=== PATIENT | female | born 1995 | race Hispanic/Latino ===

== ENCOUNTER 2018-07-20 19:06 | Emergency (ER) | payer OTHER ==
[2018-07-20 21:09] LABS: Hematocrit 33.4 % (36.0-45.0); RBC Red Blood Cell Count 3.89 M/uL (3.86-4.86)
[2018-07-20 21:10] LABS: Absolute Lymphocytes (CBC) 1.3 K/uL (0.7-4.9); Absolute Monocytes 0.6 K/uL (0.1-1.3); Absolute Neutrophil 6.8 K/uL (1.8-8.0); Basophils % 0.2 % (0-1.3); Eosinophils % 2.6 % (0-4.4); MPV 10.3 fL (7.6-11.3); Monocytes % 6.5 % (3.3-12.3)
[2018-07-20 21:19] LABS: Urine Blood TRACE (NEG); Urine Glucose NEGATIVE (NEG); Urine Protein TRACE (NEG); Urine Specific Gravity >1.030 (1.005-1.030); Urine pH 5.5 (5.0-7.0)
[2018-07-20 21:24] LABS: ALT/SGPT 20 U/L (12-78); AST/SGOT 16 U/L (15-37); Albumin 3.5 g/dL (3.4-5.0); Alkaline Phosphatase 128 U/L (45-117); BUN Blood Urea Nitrogen 9 mg/dL (7-18); Bicarbonate 23 mmol/L (21-32); Bilirubin Direct < 0.1 mg/dL (0-0.2); Bilirubin Total 0.3 mg/dL (0.2-1.0); Glucose Level 106 mg/dL (74-106); Lipase 113 U/L (73-393); Potassium 3.5 mmol/L (3.5-5.1); Protein, Total 7.4 g/dL (6.4-8.2); Sodium Level 141 mmol/L (136-145)
[2018-07-20] MEDS ORDERED: NA CHLORIDE 0.9% 1,000 ML ONE (21:38)
[2018-07-20] MEDS ORDERED: ONDANSETRON 4 MG/2 ML VIAL ONE (21:38)
[2018-07-20] MEDS ORDERED: KETOROLAC 30 MG/ML INJ ONE (21:38)
[2018-07-20] MEDS ORDERED: PROMETHAZINE 25 MG/ML VIAL ONE (21:44)
--- NOTE | 2018-07-20 21:44 | ER ---
Nurse's Notes [facility] Name: Aicha Bee Age: 23 yrs Sex: Female : 1995 Arrival Date: 07/20/2018 Time: 19:18 Bed 11 Private MD: Diagnosis: Unspecified abdominal pain Presentation: 07/20 19:19 Presenting complaint: Patient states: I have been having lower abd pain for three days la1 with chills. Pt denies vomiting or diarrhea. Transition of care: patient was not received from another setting of care. Onset of symptoms was July 20, 2018. Risk Assessment: Do you want to hurt yourself or someone else? Patient reports no desire to harm self or others. Initial Sepsis Screen: Does the patient meet any 2 criteria? No. Patient's initial sepsis screen is negative. Does the patient have a suspected source of infection? No. Patient's initial sepsis screen is negative. Care prior to arrival: None. 19:19 Method Of Arrival: Ambulatory la1 19:19 Acuity: HIRO 3 la1 Triage Assessment: 20:48 General: Behavior is calm, cooperative. 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 - Social history:: Smoking status: Patient/guardian denies using tobacco. - Ebola Screening: : No symptoms or risks identified at this time. Screenin:44 Abuse screen: Denies threats or abuse. Denies injuries from another. Nutritional mg2 screening: No deficits noted. Tuberculosis screening: No symptoms or risk factors identified. Fall Risk IV access (20 points). Assessment: 20:45 General: Appears in no apparent distress. comfortable. Pain: Complains of pain in mg2 abdomen Pain does not radiate. Pain currently is 3 out of 10 on a pain scale. Quality of pain is described as aching, Pain began gradually, 2-3 days ago. Is intermittent. Neuro: Level of Consciousness is awake, alert, obeys commands, Oriented to person, place, time, situation. Cardiovascular: Capillary refill < 3 seconds Patient's skin is warm and dry. Cardiovascular: Reports chest pain. Respiratory: Airway is patent Respiratory effort is even, unlabored, Respiratory pattern is regular, symmetrical. GI: Bowel sounds present X 4 quads. Abd is soft and non tender. : Urine is clear. EENT: No signs and/or symptoms were reported regarding the EENT system. Derm: Skin is intact, is healthy with good turgor, Skin is pink, warm \T\ dry. normal. Musculoskeletal: No signs and/or symptoms reported regarding the musculoskeletal system. 22:22 Reassessment: Patient is alert, oriented x 3, equal unlabored respirations, skin bb warm/dry/pink. pt verbalized understanding of and agrees to plan of care discharge instructions given pt ambulated with steady gait to exit accompanied by family. Vital Signs: 19:20 BP 107 / 86; Pulse 107; Resp 16; Temp 99.3(TE); Pulse Ox 100% on R/A; la1 20:45 BP 110 / 70; Pulse 98; Resp 18; Temp 98.7; Pulse Ox 100% on R/A; Pain 2/10; mg2 22:23 BP 97 / 59; Pulse 85; Resp 16 S; Temp 96.8(O); Pulse Ox 100% on R/A; Pain 8/10; bb ED Course: 19:18 Patient arrived in ED. la1 19:19 Triage completed. la1 19:20 Arm band placed on right wrist. la1 19:52 Randi Mandujano FNP-C is [facility]. kb 19:52 Sriram Lugo MD is Attending Physician. kb 19:54 Stepan Christianson, REED is Primary Nurse. mg2 20:45 No provider procedures requiring assistance completed. Inserted saline lock: 20 gauge mg2 in right antecubital area, using aseptic technique. Blood collected. 20:47 Patient has correct armband on for positive identification. Pulse ox on. NIBP on. Door mg2 closed. 22:23 IV discontinued, intact, bleeding controlled, No redness/swelling at site. Pressure bb dressing applied. Administered Medications: 21:35 Drug: NS 0.9% 1000 ml Route: IV; Rate: 1000 ml; Site: right antecubital; la1 21:55 Follow up: IV Status: Completed infusion la1 21:35 Not Given (Other Intervention Used): Zofran 4 mg IVP once; over 2 minutes la1 21:35 Drug: TORadol 30 mg Route: IVP; Site: right antecubital; la1 21:55 Follow up: Response: No adverse reaction la1 21:55 Drug: Phenergan 12.5 mg Route: IVP; Site: right antecubital; la1 21:55 Follow up: Response: No adverse reaction la1 Outcome: 21:43 Discharge ordered by . kb 22:24 Discharged to home ambulatory, with family. bb 22:24 Condition: stable 22:24 Discharge instructions given to patient, Instructed on discharge instructions, follow up and referral plans. medication usage, Demonstrated understanding of instructions, follow-up care, medications, Prescriptions given X 1. 22:25 Patient left the ED. bb Signatures: Randi Mandujano, RODNEY-C RODNEY-Venecia Roman RN RN bb Denny Campbell RN RN la1 Stepan Christianson RN RN mg2
--- NOTE | 2018-07-20 21:44 | EDPHYS ---
Physician Documentation [facility] Name: Aicha Bee Age: 23 yrs Sex: Female : 1995 Arrival Date: 07/20/2018 Time: 19:18 Bed 11 Private MD: ED Physician Sriram Lugo HPI: 07/20 20:53 This 23 yrs old Female presents to ER via Ambulatory with complaints of kb Abdominal Pain. 20:53 The patient presents with abdominal pain in the left upper quadrant, in the left lower kb quadrant. Onset: The symptoms/episode began/occurred 4 day(s) ago. The symptoms do not radiate. Associated signs and symptoms: Pertinent positives: nausea. The symptoms are described as constant. Modifying factors: The symptoms are alleviated by nothing, the symptoms are aggravated by nothing. Severity of pain: At its worst the pain was moderate in the emergency department the pain is unchanged. The patient has not experienced similar symptoms in the past. The patient has not recently seen a physician. 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 - Social history:: Smoking status: Patient/guardian denies using tobacco. - Ebola Screening: : No symptoms or risks identified at this time. ROS: 20:51 ENT: Negative for injury, pain, and discharge, Neck: Negative for injury, pain, and kb swelling, Cardiovascular: Negative for chest pain, palpitations, and edema, Respiratory: Negative for shortness of breath, cough, wheezing, and pleuritic chest pain, Back: Negative for injury and pain, : Negative for injury, bleeding, discharge, and swelling, MS/Extremity: Negative for injury and deformity, Skin: Negative for injury, rash, and discoloration, Neuro: Negative for headache, weakness, numbness, tingling, and seizure. 20:51 Constitutional: Positive for body aches, chills, Negative for fatigue, fever, malaise, poor PO intake, weight loss. 20:51 Abdomen/GI: Positive for abdominal pain, nausea, Negative for vomiting, diarrhea, constipation, abdominal cramps, abdominal distension, anorexia. Exam: 20:52 Constitutional: This is a well developed, well nourished patient who is awake, alert, kb and in no acute distress. Head/Face: Normocephalic, atraumatic. ENT: Nares patent. No nasal discharge, no septal abnormalities noted. Tympanic membranes are normal and external auditory canals are clear. Oropharynx with no redness, swelling, or masses, exudates, or evidence of obstruction, uvula midline. Mucous membranes moist. Neck: Trachea midline, no thyromegaly or masses palpated, and no cervical lymphadenopathy. Supple, full range of motion without nuchal rigidity, or vertebral point tenderness. No Meningismus. Chest/axilla: Normal chest wall appearance and motion. Nontender with no deformity. No lesions are appreciated. Cardiovascular: Regular rate and rhythm with a normal S1 and S2. No gallops, murmurs, or rubs. Normal PMI, no JVD. No pulse deficits. Respiratory: Lungs have equal breath sounds bilaterally, clear to auscultation and percussion. No rales, rhonchi or wheezes noted. No increased work of breathing, no retractions or nasal flaring. Back: No spinal tenderness. No costovertebral tenderness. Full range of motion. Skin: Warm, dry with normal turgor. Normal color with no rashes, no lesions, and no evidence of cellulitis. MS/ Extremity: Pulses equal, no cyanosis. Neurovascular intact. Full, normal range of motion. Neuro: Awake and alert, GCS 15, oriented to person, place, time, and situation. Cranial nerves II-XII grossly intact. Motor strength 5/5 in all extremities. Sensory grossly intact. Cerebellar exam normal. Normal gait. 20:52 Abdomen/GI: Inspection: abdomen appears normal, Bowel sounds: normal, in all quadrants, Palpation: soft, in all quadrants, nontender, in the right upper quadrant and right lower quadrant, moderate abdominal tenderness, in the left upper quadrant and left lower quadrant. Vital Signs: 19:20 BP 107 / 86; Pulse 107; Resp 16; Temp 99.3(TE); Pulse Ox 100% on R/A; la1 20:45 BP 110 / 70; Pulse 98; Resp 18; Temp 98.7; Pulse Ox 100% on R/A; Pain 2/10; mg2 22:23 BP 97 / 59; Pulse 85; Resp 16 S; Temp 96.8(O); Pulse Ox 100% on R/A; Pain 8/10; bb MDM: 19:52 Patient medically screened. 20:52 Data reviewed: vital signs, nurses notes. Data interpreted: Pulse oximetry: on room air kb is 100 %. Interpretation: normal. 21:41 Counseling: I had a detailed discussion with the patient and/or guardian regarding: the kb historical points, exam findings, and any diagnostic results supporting the discharge/admit diagnosis, lab results, the need for outpatient follow up, a family practitioner, to return to the emergency department if symptoms worsen or persist or if there are any questions or concerns that arise at home. 07/20 20:20 Order name: Basic Metabolic Panel 07/20 20:20 Order name: CBC with Diff 07/20 20:20 Order name: Hepatic Function 07/20 20:20 Order name: Lipase 07/20 20:20 Order name: [place] Screen Profile 07/20 20:29 Order name: Urine Dipstick--Ancillary (enter results) 4 07/20 20:29 Order name: Urine --Ancillary (enter results) 4 07/20 21:19 Order name: CBC with Automated Diff; Complete Time: 21:19 EDMS 07/20 21:19 Order name: Urine --Ancillary; Complete Time: 21:22 EDMS 07/20 21:19 Order name: Urine Dipstick-Ancillary; Complete Time: 21:22 EDMS 07/20 21:24 Order name: [place] Screen; Complete Time: 21:25 EDMS 07/20 21:24 Order name: Basic Metabolic Panel; Complete Time: 21:25 EDMS 07/20 21:24 Order name: Liver (Hepatic) Function; Complete Time: 21:25 EDMS 07/20 21:24 Order name: Lipase; Complete Time: 21:25 EDMS 07/20 19:53 Order name: Urine Dipstick-Ancillary (obtain specimen); Complete Time: 20:29 kb 07/20 20:20 Order name: IV Saline Lock; Complete Time: 20:44 kb 07/20 20:20 Order name: Labs collected and sent; Complete Time: 20:44 kb Administered Medications: 21:35 Drug: NS 0.9% 1000 ml Route: IV; Rate: 1000 ml; Site: right antecubital; la1 21:55 Follow up: IV Status: Completed infusion la1 21:35 Not Given (Other Intervention Used): Zofran 4 mg IVP once; over 2 minutes la1 21:35 Drug: TORadol 30 mg Route: IVP; Site: right antecubital; la1 21:55 Follow up: Response: No adverse reaction la1 21:55 Drug: Phenergan 12.5 mg Route: IVP; Site: right antecubital; la1 21:55 Follow up: Response: No adverse reaction la1 Disposition: 07/21 05:00 Co-signature as Attending Physician, Sriram Lugo MD. rn Disposition: 07/20/18 21:43 Discharged to Home. Impression: Unspecified abdominal pain. - Condition is Stable. - Discharge Instructions: Abdominal Pain, Adult, [id number]. - Prescriptions for Diclofenac Sodium 75 mg Oral Tablet, Delayed Release (E.C.) - take 1 tablet by ORAL route 2 times per day As needed; 30 tablet. - Medication Reconciliation Form, Thank You Letter, Antibiotic Education, Prescription Opioid Use form. - Follow up: Emergency Department; When: As needed; Reason: Worsening of condition. Follow up: Private Physician; When: 2 - 3 days; Reason: Recheck today's complaints, Continuance of care, Re-evaluation by your physician. Signatures: Dispatcher [employer] EDRandi Godoy, RODNEY-C ELECTRONICS SPECIALIST-Venecia Roman, RN RN Sriram Rivers MD MD rn Attema, Lee, RN RN la1 Corrections: (The following items were deleted from the chart) 07/20 20:54 20:53 Onset: The symptoms/episode began/occurred today, erik valencia 22:25 21:43 07/20/2018 21:43 Discharged to Home. Impression: Unspecified abdominal pain. bb Condition is Stable. Forms are Medication Reconciliation Form, Thank You Letter, Antibiotic Education, Prescription Opioid Use. Follow up: Emergency Department; When: As needed; Reason: Worsening of condition. Follow up: Private Physician; When: 2 - 3 days; Reason: Recheck today's complaints, Continuance of care, Re-evaluation by your physician. kb
== END 2018-07-20 22:25 | disposition home or self-care (01) ==
LOC: ER 19:06
DX: R10.12 Left upper quadrant pain (principal); R10.32 Left lower quadrant pain
CPT/HCPCS: 36415; 80048; 80076; 81003; 81025; 83690; 85025; 86308; 96374; 96375; 99284; J2405; J2550; J7030